=== PATIENT | male | born 1990 | race Caucasian/White ===

== ENCOUNTER 2016-05-08 18:33 | Emergency (ER) | payer SELFPAY ==
--- NOTE | 2016-05-08 18:47 | ED Physician Documentation ---
General Adult - HISTORIAN Historian: patient - HPI Chief Complaint: Sore Throat Onset: days ago (3 days) Timing: still present Severity: moderate Modifying Factors: worse pain with swallowing - ROS CONST: denies: fever, chills EYES/ENT: other (decrease hearing in the left ear, some pain, ) - PAST HX Past History: none Other History: none Surgeries/Procedures: none - SOCIAL HX Smoking History: non-smoker Alcohol Use: none Drug Use: none - FAMILY HX Family History: No - VITAL SIGNS Vital Signs: Vital Signs Temp Pulse Resp BP Pulse Ox 118/60 09/28/15 14:28 <Colton Vernon - Last Filed: 05/08/16 18:45> - VITAL SIGNS Vital Signs: Vital Signs Temp Pulse Resp BP Pulse Ox 99.9 F H 88 16 120/68 99 05/08/16 20:40 05/08/16 20:40 05/08/16 20:40 05/08/16 20:40 05/08/16 20:40 - REVIEWED ASSESSMENTS Nursing Assessment Reviewed: Yes Vitals Reviewed: Yes <ANG THOMAS - Last Filed: 05/08/16 21:53> - PAST HX Allergies/Adverse Reactions: Allergies Allergy/AdvReac Type Severity Reaction Status Date / Time No Known Allergies Allergy Verified 05/08/16 18:48 Home Medications: Ambulatory Orders Medication Instructions Recorded NK [NK] 09/28/15 ED Results Lab/Radiology - Lab Results Lab Results: Lab Results 05/08/16 18:35 Group A Strep Screen Negative (NEGATIVE) - Orders Orders: ED Orders Category Date Time Status GRP A STREP SCREEN Routine Lab 05/08/16 18:35 Completed THROAT CULTURE Routine Lab 05/08/16 18:35 Received Azithromycin [Zithromax] Med 05/08/16 19:42 Discontinued 500 mg PO NOW ONE Ibuprofen [Advil] Med 05/08/16 19:42 Discontinued 800 mg PO NOW ONE <ANG THOMAS - Last Filed: 05/08/16 21:53> General Adult Physical Exam - PHYSICAL EXAM GENERAL APPEARANCE: mild distress EENT: eye inspection normal, ENT inspection normal, no signs of dehydration, OLIVERIO, no nystagmus, TM's nml, pharyngeal erythema (no exudate) RESPIRATORY: no resp distress, chest non-tender, breath sounds normal CVS: reg rate & rhythm, heart sounds normal, equal pulses, no murmur, no gallop , PMI nml, no JVD, no friction rub, 24 ABDOMEN: soft, no organomegaly, normal bowel sounds, no abdominal bruit, no distension SKIN: normal color, warm/dry, NR, INT, PAL, DR EXTREMITIES: non-tender, normal range of motion, no evidence of injury, no edema , J, EMPLOYMENT OFFICER NEURO: oriented X3, CN's nml as tested, motor nml, sensation nml, mood/affect nml <ANG THOMAS - Last Filed: 05/08/16 21:53> Discharge <Colton Vernon - Last Filed: 05/08/16 18:45> Decision to Admit: NO Decision Time: 20:35 <ANG THOMAS - Last Filed: 05/08/16 21:53> Clincal Impression: Pharyngitis Qualifiers: Pharyngitis/tonsillitis etiology: unspecified etiology Qualified Code(s): J02.9 - Acute pharyngitis, unspecified Referrals: Primary Doctor,No [Primary Care Provider] - 2 Days Home Medications: Ambulatory Orders NK [NK] 09/28/15 Condition: Stable Disposition: 01 HOME, SELF-CARE
[2016-05-08] MEDS ORDERED: AZITHROMYCIN 250 MG TABLET PO ONE (19:42)
[2016-05-08] MEDS ORDERED: IBUPROFEN 400 MG TABLET PO ONE (19:42)
[2016-05-08 20:41] VITALS: BP 120/68
== END 2016-05-08 19:55 | disposition home or self-care (01) ==
LOC: ED 18:33
DX: J02.9 Acute pharyngitis, unspecified (principal)
CPT/HCPCS: 87070; 87880; 99283

== ENCOUNTER 2018-09-28 15:18 | Emergency (ER) | payer SELFPAY ==
[2018-10-07 18:46] LABS: BASOPHILS % 0.9 % (0.0-1.5); eGFR (Non-African) > 60
== END 2018-09-28 17:50 ==
LOC: ED 15:18
DX: R11.2 Nausea with vomiting, unspecified (principal)
CPT/HCPCS: 36415; 80053; 85025; 99283; S1016